=== PATIENT | female | born 2000 | race Caucasian/White ===

== ENCOUNTER 2024-05-18 19:09 | Emergency (ER) | payer BC ==
[2024-05-18] MEDS: Amoxicillin/Clavulanate K 875-125 MG Tab PO ONE (20:20)
[2024-05-18] MEDS: Diphtheria,Pertussis(Acell),Tetanus Vaccine 0.5 ML Syringe IM ONE (20:22)
== END 2024-05-18 20:25 | disposition home or self-care (01) ==
LOC: JD.ED 19:09
DX: S61.451A Open bite of right hand, initial encounter (principal); Z23 Encounter for immunization; Z79.899 Other long term (current) drug therapy; W54.0XXA Bitten by dog, initial encounter
CPT/HCPCS: 90471; 90715; 99283; A9270; 99284